=== PATIENT | male | born 1985 | race Caucasian/White ===

== ENCOUNTER 2021-04-07 13:09 | Emergency (ER) | payer OTHER ==
[2021-04-07 13:35] VITALS: BP 136/77; PULSE 80; TEMP 98.6; BMI 28.3
[2021-04-07] MEDS ORDERED: DIPHTH,PERTUSS(ACELL),TET 0.5 ML DISP.SYRIN IM ONE ×2 (13:37→13:46)
[2021-04-07] MEDS ORDERED: ACETAMINOPHEN 325 MG TABLET (FP) PO ONE (13:37)
[2021-04-07] MEDS ORDERED: ACETAMINOPHEN 325 MG TABLET (FP) ONE (13:46)
== END 2021-04-07 14:23 | disposition home or self-care (01) ==
LOC: FER 13:09
PROC: 3E0234Z Introduction of Serum, Toxoid and Vaccine into Muscle, Percutaneous Approach (ICD-10-PCS; principal; 2021-04-07)
DX: M25.522 Pain in left elbow (principal)
CPT/HCPCS: 90715; 99283-25